=== PATIENT | male | born 1960 | race Caucasian/White ===

== ENCOUNTER → 2019-12-02 14:42 | Outpatient (CLI) | payer MEDICAID, SELFPAY ==
--- NOTE | 2019-12-02 14:46 | MR_ITS ---
PROCEDURE: MR SHOULDER LT WO CON CLINICAL INDICATION: PAIN IN LEFT SHOULDER LET SHOULDER PAIN X 3 WEEKS PT STATES HE IS UNABLE TO RAISE ARM. PT DENIES TRAUMA OR INJURY. COMPARISON: No exams were available for comparison TECHNIQUE: Routine multiplanar multi echo sequences are performed without gadolinium enhancement. FINDINGS: There are mild hypertrophic changes of the acromioclavicular joint with mild subacromial stenosis. Small subarticular cysts are present at the AC joint. The supraspinatus, infraspinatus, subscapularis, and teres minor tendons appear intact. No evidence of rotator cuff tear. The bicipital tendon is in place. No obvious labral tear. Small amount fluid is present in the subcoracoid region. IMPRESSION: 1. Acromioclavicular arthropathy with bony hypertrophy, sub chondral cysts, and mild subacromial stenosis with mild subcoracoid bursitis 2. No evidence rotator cuff tear or other significant anomaly Dictated by: Chin Cummins MD 12/05/2019 07:29 Chin Cummins MD in [place] 12/05/2019 07:29
== END ==
PROVIDERS: PCP Nurse Practitioner Family; Visit Provider Nurse Practitioner Family
DX: M25.512 Pain in left shoulder (principal)
CPT/HCPCS: 73221

== ENCOUNTER → 2022-02-05 08:03 | Outpatient (CLI) | payer MEDICAID, SELFPAY ==
--- NOTE | 2022-02-05 08:06 | US_ITS ---
FINAL REPORT CLINICAL HISTORY: RUQ PAIN FINDINGS: Sonographic images of the right upper quadrant were obtained. The pancreas is partially obscured.The liver has an unremarkable appearance. There are at least 2 tiny gallbladder polyps measuring 2 MM. Gallbladder is otherwise unremarkable. There is no evidence of biliary ductal dilatation.The common duct measures 0.28 mm. There is a 1.6 cm mid right renal cyst. Right kidney measures 10 cm in length and is otherwise unremarkable. IMPRESSION: Tiny gallbladder polyps. Right renal cyst. Reviewed, Interpreted and Dictated by Lashell Tanner MD Transcribed by Natalia Ellis Authenticated and [facility]
== END ==
PROVIDERS: PCP Nurse Practitioner Family; Visit Provider Nurse Practitioner Family
DX: R10.11 Right upper quadrant pain (principal)
CPT/HCPCS: 76705

== ENCOUNTER 2022-04-10 10:18 | Day surgery (SDC) | payer MEDICAID, SELFPAY ==
[2022-04-10 11:13] VITALS: BP 159/58; PULSE 85; RESP 18; TEMP 36.5; O2SAT 94; BMI 25.8
[2022-04-10 11:22] LABS: POC Glucose,Bedside 104 (70-110)
--- NOTE | 2022-04-10 11:56 | EXP.ANES.CKL ---
[facility] Disclaimer: The information contained in this section may have been updated after the patient was seen, as this information can be updated by other users. Medical History Diabetes mellitus, type 2 Hyperlipidemia Hypertension Osteoarthritis Surgical History History of colonoscopy History of rectal polypectomy Family History Other Family history of cancer Family history of diabetes mellitus type II Family history of myocardial infarction Social History Smoking Status: Never smoker second hand exposure: No alcohol intake: current substance use type: denies use current occupational status: retired Travel in the last 8 weeks: None household members: none housing: house lives independently: Yes marital status: single education level: high school service: No current occupation: self-employed current occupational exposures/hazards: No caffeine: Yes special steven needs: No agree to transfusion: No do you feel safe at home: Yes victim of physical abuse: No victim of emotional abuse: No victim of sexual abuse: No would you like helpful sources: No [facility] Anesthesia Checklist Patient Identification Patient Identification: Arm Band Structural Data Admitted From: Home Planned Operative Procedure/s: colonoscopy Consent for Planned Operative Procedure(s) Verified: Yes Verified Documents: Surgical Consent and History and Physical NPO Status Verified Time NPO: 00:00 Additional verifications Anesthesia Reactions: No Airway Assessment C-Spine Mobility Assessed: Yes TMJ Mobility Assessed: Yes Dentition: Good Dentition Neurological Assessment Level of Consciousness: Awake and Alert Anesthesia Plan Anesthesia Risk discussed: Yes Anesthesia Plan: Verified ASA Class: II Anesthesia Type: MAC
--- NOTE | 2022-04-10 12:32 | P.PCN_ITS ---
Procedure: Date: 04/10/22 Patient Date of :: 1960 Procedure Performed:: Colonoscopy Indications:: History of colon polyps Performing Provider:: Seymour Espinal MD Referring Provider:: Marcela Canas APRN Sedation:: Monitored anesthesia care Procedure:: After informed consent was obtained the patient was taken to the endoscopy suite. Sedation ensued after the patient was transferred to the left lateral d ecubitus position. Pulse, blood pressure, and oxygen saturation were monitored throughout the procedure. Digital rectal exam revealed no significant abnormality. The colonoscope was placed in position. The entire colon was evaluated. The colonoscope was carefully removed and the patient was transferred to recovery in stable condition. Please see findings and specimens below for detail. Findings:: Bowel prep moderate Significant spasticity/lack of relaxation Specimens:: None Recommendations:: Likely repeat colonoscopy approximately 3 years secondary to history of polyps, moderate bowel prep, and spasticity/lack of relaxation. Note: The patient has a history of right upper quadrant pain with radiation to the right flank. Symptoms are worse with greasy meals . Recent ultrasound revealed a 2 mm polyp. Plans were to proceed with cholecystectomy after colonoscopy completed. Complications:: No immediate Estimated blood obtained (mL): 0
[2022-04-10 12:39] VITALS: O2SAT 94
[2022-04-10 13:20] VITALS: BP 102/58; PULSE 68; RESP 14; TEMP 36.2; O2SAT 95
[2022-04-10 13:30] VITALS: BP 111/55; PULSE 67; RESP 16; O2SAT 94
[2022-04-10 13:40] VITALS: BP 98/60; PULSE 72; RESP 16; O2SAT 96
[2022-04-10 13:50] VITALS: BP 122/55; PULSE 71; RESP 16; TEMP 36.7; O2SAT 97
== END 2022-04-10 13:50 | disposition home or self-care (01) ==
PROVIDERS: PCP Nurse Practitioner Family; Visit Provider Surgery
PROC: 0DJD8ZZ Inspection of Lower Intestinal Tract, Via Natural or Artificial Opening Endoscopic (ICD-10-PCS; CPT 45378; principal; 2022-04-10 12:30)
DX: Z12.11 Encounter for screening for malignant neoplasm of colon (principal); Z86.010 Personal history of colon polyps; E11.9 Type 2 diabetes mellitus without complications; Z79.899 Other long term (current) drug therapy
CPT/HCPCS: 45378; 82962

== ENCOUNTER → 2022-04-20 09:08 | Outpatient (CLI) | payer MEDICAID, SELFPAY ==
--- NOTE | 2022-04-20 09:35 | ECG_ITS ---
APPROVED REPORT Exam: Resting ECG HR:75 bpm ECG Measurements Heart Rate 75 AXES NE 152 P 52 QRSd 96 QRS 51 QT 370 T -3 QTc 400 Conclusion SINUS RHYTHM NORMAL ECG UNCONFIRMED REPORT Electronically signed by : Dayday Mendoza MD 04/21/2022 12:09:19
[2022-04-20 10:33] LABS: Basophils # 0.1 K/mm3 (0-0.2); Basophils % 0.9 % (0.1-2.0); Eosinophils # 0.4 K/mm3 (0.0-0.4); Eosinophils % 5.4 % (0.1-12.0); Hematocrit 45.5 % (42.0-52.0); Hemoglobin 14.2 g/dL (14.1-18.0); Lymphocytes # 0.9 K/mm3 (0.7-4.5); Lymphocytes % 11.9 % (10-50); Mean Corpuscular HGB Conc 31.2 g/dL (31.8-35.4); Mean Corpuscular Hemoglobin 26.5 pg (27.0-31.2); Mean Corpuscular Volume 84.9 fl (80-94); Mean Platelet Volume 8.4 fl (7.4-10.4); Monocytes # 0.4 K/mm3 (0.1-1.0); Monocytes % 5.3 % (1.7-9.3); Neutrophils # 5.5 K/mm3 (1.8-7.8); Neutrophils % 76.4 % (37.0-80.0); Platelet Count 222 K/mm3 (142-424); Red Blood Count 5.35 M/mm3 (4.60-6.20); Red Cell Distribution Width 14.1 % (11.5-17.5); White Blood Count 7.2 K/mm3 (4.8-10.8)
[2022-04-20 11:20] LABS: Alanine Aminotransferase 20 U/L (12-78); Albumin Level 4.3 g/dl (3.5-5.0); Alkaline Phosphatase 101 U/L (38-126); Anion Gap 12.4 mEq/L (5-15); Aspartate Amino Transferase 31 U/L (17-59); Bilirubin,Total 0.7 mg/dl (0.2-1.3); Blood Urea Nitrogen 17 mg/dl (9-20); Calcium 8.8 mg/dl (8.4-10.2); Carbon Dioxide 26 mmol/L (22.0-30.0); Chloride 103 mmol/L (98-107); Estimated Glomerular Filt Rate 98 ml/min (>60); GFR (African American) 119 ML/MIN (>60); Globulin 2.2 g/dL (1.3-3.2); Glucose 152 mg/dl (74-100); Potassium 4.4 mmoL/L (3.5-5.1); Sodium 137 mmol/L (136-145); Total Protein,Serum 6.5 g/dl (6.3-8.2)
== END ==
PROVIDERS: PCP Nurse Practitioner Family; Visit Provider Surgery
DX: K82.4 Cholesterolosis of gallbladder; Z01.818 Encounter for other preprocedural examination
CPT/HCPCS: 36415; 80053; 85025; 93005

== ENCOUNTER 2022-05-10 07:45 | Day surgery (SDC) | payer MEDICAID, SELFPAY ==
[2022-05-08 17:23] VITALS: BMI 25.8
[2022-05-10] VITALS (11 sets, daily range): BP systolic 128–162; BP diastolic 66–93; PULSE 68–83; RESP 16–18; TEMP 36.1–43; O2SAT 94–98
--- NOTE | 2022-05-10 10:52 | P.PN_ITS ---
[facility] Disclaimer: The information contained in this section may have been updated after the patient was seen, as this information can be updated by other users. Medical History Diabetes mellitus, type 2 Hyperlipidemia Hypertension Osteoarthritis Surgical History History of colonoscopy History of rectal polypectomy surgical removal too large for procedure rm Family History Other Family history of cancer Family history of diabetes mellitus type II Family history of myocardial infarction Social History Smoking Status: Never smoker second hand exposure: No alcohol intake: current substance use type: denies use current occupational status: retired Travel in the last 8 weeks: None household members: none housing: house lives independently: Yes marital status: single education level: high school service: No current occupation: self-employed current occupational exposures/hazards: No caffeine: Yes special steven needs: No agree to transfusion: No do you feel safe at home: Yes victim of physical abuse: No victim of emotional abuse: No victim of sexual abuse: No would you like helpful sources: No [facility] Anesthesia Checklist Patient Identification Patient Identification: Arm Band and Verbal (Name & ) Structural Data Admitted From: Home Planned Operative Procedure/s: Laparascopic Cholecystectomy Consent for Planned Operative Procedure(s) Verified: Yes Verified Documents: Surgical Consent NPO Status Verified Time NPO: 00:00 Chart Verification Results Verified: CBC and BMP Additional verifications Anesthesia Reactions: No Hx Blood Transfusions: No Blood Transfusion Reaction: No Airway Assessment C-Spine Mobility Assessed: Yes TMJ Mobility Assessed: Yes Dentition: Good Dentition Neurological Assessment Level of Consciousness: Awake, Alert and Appropriate Anesthesia Plan Anesthesia Risk discussed: Yes ASA Class: II Anesthesia Type: General
--- NOTE | 2022-05-10 11:34 | P.OP_ITS ---
Date of procedure: 05/10/22 Pre-op Diagnosis:: Gallbladder polyp Right upper quadrant pain Post-op Diagnosis:: Same as preoperative diagnoses with the addition of the following: Chronic cholecystitis Procedure performed:: Laparoscopic cholecystectomy Surgeon:: Seymour Espinal MD Anesthesia: GETMelina Estimated blood loss (mL): 15 Operative findings:: Severe adhesions to the anterior abdominal wall secondary to prior surgery Infundibular thickening Operative note:: After informed consent was obtained, the patient was taken to the operating room and placed in the supine position. General anesthesia was induced and the abdomen was prepped and draped in a sterile fashion. After infiltration with local anesthetic a stab incision was made in the left upper quadrant. A Veress needle was placed in position. The abdomen was insufflated. A 5 mm optical trocar was placed in position along the left mid flank. Visualization confirmed dense adhesions throughout the anterior abdominal wall projecting along the midline superiorly and inferiorly. Under direct visualization a 5 mm trocar was placed in the right lateral flank and an additional 5 mm trocar was placed in the right upper mid abdomen. Direct inspection from the right lateral trocar site confirmed dense adhesions with minimal sparing superiorly. Under direct visualization, a 12 mm trocar was placed in the subxiphoid position. Adhesions in the right mid/lower abdomen were carefully taken down bluntly in order to create a space for the periumbilical trocar. The periumbilical 5 mm trocar was placed somewhat to the right of the umbilicus and superior to the umbilicus sec ondary to need to avoid additional adhesions. No sign of obvious injury to bowel and no sign of bleeding noted. The gallbladder was elevated up and over the liver margin. The tissue around the cystic duct was carefully dissected. 3 clips were placed proximally and the duct was transected with harmonic travon. Harmonic travon were then utilized to dissect the gallbladder away from the liver margin with careful attention to the control of the cystic artery. The gallbladder was placed in a retrieval bag and removed through the subxiphoid trocar site. The right upper quadrant was thoroughly irrigated. No active bleeding or bile leak was noted. Fascia at the subxiphoid trocar site was reapproximated utilizing 0 Ethibond. The remaining trocars were removed. All wounds were irrigated and skin was closed with 4-0 Monocryl in a subcuticular fashion. Steri-Strips were applied. The patient's anesthetic agents were reversed and extubation was completed prior to transfer to recovery in stable condition. Condition: stable Disposition: PACU Specimens:: Gallbladder and contents Complications:: No immediate
--- NOTE | 2022-05-10 11:43 | EXP.ANES.I ---
[facility] Anesthesia Record Part I Anesthesia Record I Intake, IV Amount: 800 Estimated blood loss (mL): 5 Urine output (mL): 0 Blood Pressure: 131/75 SaO2: 95 Pulse Rate: 74 Respiratory Rate: 16 Temperature: 97.3 F Patient is:: Drowsy and Nasal O2 Stable to PACU at:: 11:42
[2022-05-10 11:50] LABS: POC Glucose,Bedside 123 (70-110)
--- NOTE | 2022-05-10 14:37 | P.PNANES_ITS ---
[facility] Anesthesia Record Part II Anesthesia Record Part II Discharge Time: 12:12 Destination: Surgical Day Care (OP Surgery) PACU nurse assessment reviewed?: Yes Patient Condition:: Good Anesthesia Complications:: None Swallowing reflex intact?: Yes Cyanosis?: No Blood Pressure: 145/93 Pulse Rate: 77 Temperature: 97 F Mental Status: Alert & Oriented Pain level:: 3 Nausea and/or vomitting:: None Intake, IV Amount: 0
[2022-05-11 09:04] LABS: POC Glucose,Bedside 77 (70-110)
== END 2022-05-10 12:50 | disposition home or self-care (01) ==
PROVIDERS: PCP Nurse Practitioner Family; Visit Provider Surgery
PROC: 0FT44ZZ Resection of Gallbladder, Percutaneous Endoscopic Approach (ICD-10-PCS; CPT 47562; principal; 2022-05-10 10:00)
DX: K81.1 Chronic cholecystitis (principal); E11.9 Type 2 diabetes mellitus without complications; Z79.899 Other long term (current) drug therapy
CPT/HCPCS: 47562; 82962; 96374; J2405

== ENCOUNTER → 2022-10-02 15:00 | Outpatient (CLI) | payer MEDICAID, SELFPAY ==
--- NOTE | 2022-10-02 15:04 | XR_ITS ---
FINAL REPORT CLINICAL HISTORY: Right foot pain COMPARISON: None FINDINGS: Three views of the right foot show no evidence of acute displaced fracture or dislocation of the visualized bony architecture. The joint spaces appear normal. IMPRESSION: Unremarkable exam. Reviewed, Interpreted and Dictated by Lashell Tanner MD Transcribed by Kellie Mays Authenticated and [facility]
--- NOTE | 2022-10-02 15:04 | XR_ITS ---
FINAL REPORT CLINICAL HISTORY: Left foot Pain, stepped on by cow COMPARISON: None FINDINGS: Three views of the left foot show no evidence of acute displaced fracture or dislocation of the visualized bony architecture. The joint spaces appear normal. IMPRESSION: Unremarkable exam. Reviewed, Interpreted and Dictated by Lashell Tnaner MD Transcribed by Kellie Mays Authenticated and [facility]
== END ==
PROVIDERS: PCP Nurse Practitioner Family; Visit Provider Nurse Practitioner Family
DX: M79.672 Pain in left foot (principal); M79.671 Pain in right foot
CPT/HCPCS: 73630

== ENCOUNTER 2023-07-04 19:57 | Emergency (ER) | payer SELFPAY ==
[2023-07-04 19:59] VITALS: BP 178/78; PULSE 69; RESP 20; TEMP 37.1; O2SAT 97; BMI 25.8
--- NOTE | 2023-07-04 20:15 | HMH.EDGENADL ---
Discharge Plan Disposition Patient Disposition: Home, Self-Care Prescriptions Prescriptions: No Action Jardiance 25 mg tablet 25 mg PO DAILY Patient Comments: TAKE 1 TABLET 1 TIME EACH DAY IN THE MORNING latanoprost 0.005 % drops Eye-Both Colleenaglar DonnaPen U-100 Insulin 100 unit/mL (3 mL) insulin pen 46 unit SQ DAILY atorvastatin 80 mg tablet 80 mg PO DAILY aspirin 81 mg tablet,delayed release (DR/EC) 81 mg PO DAILY tramadol 50 mg tablet 50 mg PO DAILY glyburide 5 mg tablet 5 mg PO DAILY metformin 1,000 mg tablet 1,000 mg PO DAILY meloxicam 15 mg tablet 15 mg PO DAILY lisinopril 20 mg tablet 20 mg PO DAILY amlodipine 10 mg tablet PO Patient Comments: TAKE 1 TABLET 1 TIME EACH DAY nitroglycerin 0.4 mg tablet, sublingual buccal Patient Comments: DISSOLVE 1 TABLET UNDER THE TONGUE EVERY 5 MINUTES NEEDED FOR CHEST PAIN. IF 3 TABLETS ARE NEEDED, GO TO EMERGENCY ROOM. albuterol sulfate [Ventolin HFA] 90 mcg/actuation HFA aerosol inhaler inhalation Patient Comments: INHALE 2 PUFFS EVERY 4 HOURS NEEDED FOR COUGH OR WHEEZING metoprolol tartrate 25 mg tablet PO Patient Comments: TAKE 1 TABLET 2 TIMES EACH DAY Referrals Follow up/Referrals: Marcela Canas [Primary Care Provider] - See instructions Activity Restrictions/Add. Instructions Additional Instructions/Restrictions: Stitches to stay in for 7 to 10 days. Return if you have any signs of infection. Clinical Impressions Clinical Impression: Laceration of right index finger Instructions Patient Instructions: DI for Laceration Repair Discharge ED Provider: Jeremias Clarke General Adult HPI General Chief complaint: Wound/Laceration Stated complaint: AO 07/04/23 11:30 Laceration Ring finer right hand Time Seen by Provider: 07/04/23 20:01 Mode of Arrival: Ambulatory Source of Information: Patient Limitations: No Limitations Description of Symptoms (Recalled from ER Triage Doc. 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 Patient states last tentus shot was 3-4 years ago. History of Present Illness HPI narrative: 63-year-old male up-to-date on vaccinations, no relevant medical history presenting with injury to his right ring finger. Happened around 11:30 AM today, 07/03. 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 Tip of finger is nontender, able to move it and feel it, but because of laceration, came in for further evaluation. No other trauma sustained. Please note that above description of symptoms, in this electronic medical record under categorization of recalled from ER triage doctor by RN are reflective of an initial nursing assessment, however, is not reflective of my full history and physical exam that was personally taken and clarified. Consequentially, this preceding description of symptoms, which may include the patient's categorized chief complaint in the EMR, do not reflect my personal clinical impression, and the ultimate description of history of present illness and patient stated complaints should be deferred to this section of the note. Unless stated otherwise or congruent with this section of the note, additional signs, symptoms, or incongruence should be interpreted as inaccurate with my clinical impression. Related Data Home Medications Medication Instructions Recorded Confirmed aspirin 81 mg tablet,delayed 81 mg PO DAILY preventitive 02/04/19 06/26/23 release atorvastatin 80 mg tablet 80 mg PO DAILY Cholesterol 02/04/19 06/26/23 glyburide 5 mg tablet 5 mg PO DAILY Diabetes 02/04/19 06/26/23 insulin glargine 100 unit/mL (3 46 unit SQ DAILY Diabetes 02/04/19 06/26/23 mL) subcutaneous pen (Basaglar KwikPen U-100 Insulin) lisinopril 20 mg tablet 20 mg PO DAILY bp 02/04/19 06/26/23 meloxicam 15 mg tablet 15 mg PO DAILY swelling 02/04/19 06/26/23 metformin 1,000 mg tablet 1,000 mg PO DAILY Diabetes 02/04/19 06/26/23 tramadol 50 mg tablet 50 mg PO DAILY Pain 02/04/19 06/26/23 empagliflozin 25 mg tablet 25 mg PO DAILY Diabetes 02/21/22 06/26/23 (Jardiance) latanoprost 0.005 % eye drops drp Eye-Both 10/02/22 06/26/23 albuterol sulfate 90 mcg/actuation inhalation 06/26/23 06/26/23 aerosol inhaler (Ventolin HFA) amlodipine 10 mg tablet mg PO 06/26/23 06/26/23 metoprolol tartrate 25 mg tablet mg PO 06/26/23 06/26/23 nitroglycerin 0.4 mg sublingual mg buccal 06/26/23 06/26/23 tablet Allergies Allergy/AdvReac Type Severity Reaction Status Date / Time No Known Allergies Allergy Verified 06/26/23 13:58 [facility] Disclaimer: The information contained in this section may have been updated after the patient was seen, as this information can be updated by other users. Medical History Osteoarthritis Hyperlipidemia Hypertension Diabetes mellitus, type 2 Surgical History History of laparoscopic cholecystectomy History of rectal polypectomy surgical removal too large for procedure rm History of colonoscopy Family History Other Family history of cancer Family history of diabetes mellitus type II Family history of myocardial infarction Social History Smoking Status: Never smoker second hand exposure: No alcohol intake: current alcohol intake frequency: holidays/special occasions only substance use type: denies use current occupational status: retired Travel in the last 8 weeks: None household members: none housing: house lives independently: Yes marital status: single education level: high school service: No current occupation: self-employed current occupational exposures/hazards: No caffeine: Yes special steven needs: No agree to transfusion: No do you feel safe at home: Yes victim of physical abuse: No victim of emotional abuse: No victim of sexual abuse: No would you like helpful sources: No ROS Obtained: Yes All systems reviewed & no additional complaints except as documented Physical Exam General General appearance: alert and in no apparent distress Head Head exam: atraumatic and normocephalic Eye Eye exam: Present normal appearance, PERRL and EOMI ENT ENT exam: Present mucous membranes moist Neck Neck exam: Present normal inspection, full ROM and trachea midline Respiratory Respiratory exam: Absent respiratory distress, wheezes, stridor, accessory muscle use or prolonged expiratory phase Cardiovascular Cardiovascular exam: Present normal rhythm Abdominal Exam Abdominal exam: Present soft; Absent distention, tenderness, guarding, rebound or rigidity Extremities Exam Extremities exam: Present other (Swelling and tenderness with associated 1 cm fishmouth laceration distal aspect of right ring finger. Neurovascular intact with good cap refill distally); Absent edema Neurological Exam Neurological exam: Present alert, oriented X3, CN II-XII intact and normal gait; Absent motor sensory deficit Skin Skin exam: Present warm and dry; Absent diaphoresis or erythema Medical Decision Making Medical Records Medical records reviewed: Yes I reviewed the patient's medical records. Balbir Inquiry Pt receiving controlled substance: No Balbir was queried for this patient: No Vital Signs: 07/04/23 19:59 Temperature 98.7 F Temperature Source Oral Pulse Rate [Right Radial] 69 Respiratory Rate 20 Blood Pressure [Right Arm] 178/78 H Blood Pressure Mean [Right Arm] 111 Blood Pressure Source [Right Arm] Automatic Cuff Blood Pressure Position [Right Arm] Sitting 02 Sat by Pulse Oximetry 97 Oxygen Delivery Method Room Air Orders (Tests/Meds): ED MEDICATIONS Discontinued Medications Generic Name Dose Route Start Last Admin Trade Name Joshq PRN Reason Stop Dose Admin Lidocaine HCl 20 ml 07/04/23 20:14 07/04/23 20:42 Lidocaine 1% 20ml Mdv SQ 07/04/23 20:15 20 ml ONCE ONE Administration Lidocaine/Epinephrine 20 ml 07/04/23 20:14 07/04/23 20:43 Lidocaine 1% W/Epi 1:100,000 20ml Vial SQ 07/04/23 20:15 20 ml ONCE ONE Administration Medical Decision Narrative: 63-year-old male up-to-date on vaccinations, no relevant medical history presenting with injury to his right ring finger. Happened around 11:30 AM today, 07/03. 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 Tip of finger is nontender, able to move it and feel it, but because of laceration, came in for further evaluation. No other trauma sustained. History obtained with patient. On arrival, patient hemodynamically stable. It is hemostatic. Not incredibly contaminated. Neurovascularly intact, full range of motion. He does have 1 cm fishmouth laceration along the lateral aspect of his distal right ring finger. Does not involve nailbed. Repaired with 6 stitches which were 5 point 0 nylon. Because patient at baseline without signs or symptoms of clinical decompensation, deemed appropriate for discharge. Results were relayed to patient who voiced understanding and were agreeable to outpatient management and follow up. I discussed my clinical impression with patient and answered all questions. At this time, the evidence for any other entities in the differential is insufficient to warrant any further testing or ED observation. This was explained as well. Advisory was given that persistent or worsening symptoms require further evaluation. I confirmed the understanding of this discussion. Procedures Laceration Laceration 1: Site: finger Side (If applicable): right Size (cm): 1 Description: linear Depth: simple, single layer Local Anesthetic: lidocaine 1% Amount of anesthesia used (mL): 5 Pre-repair: wound explored and irrigated extensively Skin layer closed with: nylon Size (cm): 5-0 Number of sutures: 6 Critical Care Critical Care Time Critical Care Time: No
[2023-07-04] MEDS: LIDOCAINE 1% 20ML MDV 20 ML SQ (20:42)
[2023-07-04] MEDS: LIDOCAINE 1% W/EPI 1:100,000 20ML VIAL 20 ML SQ (20:43)
[2023-07-04 21:53] VITALS: BP 140/80; PULSE 70; RESP 20; TEMP 36.7; O2SAT 98
== END 2023-07-04 21:54 | disposition home or self-care (01) ==
PROVIDERS: Emergency Provider Emergency Medicine; PCP Nurse Practitioner Family
DX: S61.214A Laceration without foreign body of right ring finger without damage to nail, initial encounter (principal); W23.2XXA Caught, crushed, jammed or pinched between a moving and stationary object, initial encounter
CPT/HCPCS: 12001; 99283

== ENCOUNTER 2023-07-15 10:32 | Emergency (ER) | payer SELFPAY ==
[2023-07-15 11:15] VITALS: BP 151/74; PULSE 71; RESP 18; TEMP 36.6; O2SAT 98; BMI 25.8
[2023-07-15 11:23] VITALS: BP 151/74; PULSE 71; RESP 18; TEMP 36.7; O2SAT 98
== END 2023-07-15 11:25 | disposition home or self-care (01) ==
PROVIDERS: Emergency Provider Nurse Practitioner; PCP Nurse Practitioner Family
DX: Z48.02 Encounter for removal of sutures (principal)

== ENCOUNTER 2023-07-20 10:21 | Emergency (ER) | payer MEDICAID, SELFPAY ==
[2023-07-20 10:22] VITALS: BP 153/76; PULSE 71; RESP 16; TEMP 36.9; O2SAT 95; BMI 25.8
--- NOTE | 2023-07-20 10:36 | CT_ITS ---
PROCEDURE INFORMATION: Exam: CT Abdomen And Pelvis Without Contrast Exam date and time: 07/20/2023 10:44 AM Age: 63 years old Clinical indication: Abdominal pain; Prior surgery; Surgery date: 6+ months; Surgery type: Partial colectomy, cholecystectomy; Additional info: Right flank/abd pain TECHNIQUE: Imaging protocol: Computed tomography of the abdomen and pelvis without contrast. Radiation optimization: All CT scans at this facility use at least one of these dose optimization techniques: automated exposure control; mA and/or kV adjustment per patient size (includes targeted exams where dose is matched to clinical indication); or iterative reconstruction. COMPARISON: US GALLBLADDER 02/05/2022 8:57 AM FINDINGS: Limitations: The absence of intravenous contrast limits the assessment of vascular structures, lesions and lymphadenopathy. Lungs: Right lower lobe granuloma Liver: No focal hepatic lesions within the limits of noncontrast examination. Gallbladder and bile ducts: There has been a cholecystectomy. Pancreas: No peripancreatic fluid stranding. No main pancreatic ductal dilation. Spleen: No splenomegaly. Adrenal glands: The adrenal glands are normal. Kidneys and ureters: No nephrolithiasis or hydroureteronephrosis on either side. Stomach and bowel: Status post right hemicolectomy.No bowel wall thickening or distention. Appendix: Status post appendectomy Intraperitoneal space: There is no evidence of free intraperitoneal or pelvic fluid. Vasculature: The aorta demonstrates moderate atherosclerotic calcification. Lymph nodes: No lymphadenopathy. Urinary bladder: Urinary bladder is unremarkable. Reproductive: Unremarkable as visualized. Bones/joints: No acute osseous abnormality. Multilevel degenerative changes of the included spine. Soft tissues: Unremarkable. Other findings: Window IMPRESSION: No acute abnormality in the abdomen or pelvis
[2023-07-20 10:42] LABS: Basophils # 0.1 K/mm3 (0-0.2); Basophils % 0.7 % (0.1-2.0); Eosinophils # 0.3 K/mm3 (0.0-0.4); Eosinophils % 3.2 % (0.1-12.0); Hematocrit 49.5 % (42.0-52.0); Hemoglobin 15.8 g/dL (14.1-18.0); Lymphocytes # 0.9 K/mm3 (0.7-4.5); Lymphocytes % 9.6 % (10-50); Mean Corpuscular Hemoglobin 29.4 pg (27.0-31.2); Mean Corpuscular Volume 91.8 fl (80-94); Mean Platelet Volume 7.6 fl (7.4-10.4); Monocytes # 0.5 K/mm3 (0.1-1.0); Monocytes % 4.9 % (1.7-9.3); Neutrophils # 7.9 K/mm3 (1.8-7.8); Neutrophils % 81.7 % (37.0-80.0); Platelet Count 229 K/mm3 (142-424); Red Blood Count 5.39 M/mm3 (4.60-6.20); Red Cell Distribution Width 14.1 % (11.5-17.5); White Blood Count 9.7 K/mm3 (4.8-10.8)
[2023-07-20 10:44] LABS: Chloride 98 mmol/L (98-107)
[2023-07-20 10:45] LABS: Potassium 4.4 mmoL/L (3.5-5.1); Sodium 137 mmol/L (136-145)
[2023-07-20 10:47] LABS: Alanine Aminotransferase 32 U/L (12-78); Alkaline Phosphatase 98 U/L (38-126); Aspartate Amino Transferase 40 U/L (17-59); Bilirubin,Total 1.1 mg/dl (0.2-1.3); Blood Urea Nitrogen 14 mg/dl (9-20); Creatinine Clearance Estimated 78 mL/min (50-200); Estimated Glomerular Filt Rate 114 ml/min (>60); GFR (African American) 138 ML/MIN (>60)
--- NOTE | 2023-07-20 10:47 | ED_ITS ---
Discharge Plan Disposition Patient Disposition: Home, Self-Care Prescriptions Prescriptions: No Action Jardiance 25 mg tablet 25 mg PO DAILY Patient Comments: TAKE 1 TABLET 1 TIME EACH DAY IN THE MORNING latanoprost 0.005 % drops Eye-Both Maria Ines Hardin U-100 Insulin 100 unit/mL (3 mL) insulin pen 46 unit SQ DAILY atorvastatin 80 mg tablet 80 mg PO DAILY aspirin 81 mg tablet,delayed release (DR/EC) 81 mg PO DAILY tramadol 50 mg tablet 50 mg PO DAILY glyburide 5 mg tablet 5 mg PO DAILY metformin 1,000 mg tablet 1,000 mg PO DAILY meloxicam 15 mg tablet 15 mg PO DAILY lisinopril 20 mg tablet 20 mg PO DAILY amlodipine 10 mg tablet PO Patient Comments: TAKE 1 TABLET 1 TIME EACH DAY nitroglycerin 0.4 mg tablet, sublingual buccal Patient Comments: DISSOLVE 1 TABLET UNDER THE TONGUE EVERY 5 MINUTES NEEDED FOR CHEST PAIN. IF 3 TABLETS ARE NEEDED, GO TO EMERGENCY ROOM. albuterol sulfate [Ventolin HFA] 90 mcg/actuation HFA aerosol inhaler inhalation Patient Comments: INHALE 2 PUFFS EVERY 4 HOURS NEEDED FOR COUGH OR WHEEZING metoprolol tartrate 25 mg tablet PO Patient Comments: TAKE 1 TABLET 2 TIMES EACH DAY Referrals Follow up/Referrals: Marcela Canas [Primary Care Provider] - See instructions Activity Restrictions/Add. Instructions Additional Instructions/Restrictions: No obvious emergent medical condition identified. Under CT scan there is a very large amount of stool in the ascending colon on the right side of your abdomen which may be the cause of your intermittent abdominal discomfort. I highly recommend he take [id number] MiraLAX starting with half a cap twice a day doubling the dose every 3 days until you have a very soft bowel movement daily then stay on this dose for 2 weeks. Follow-up with primary care doctor and return to emergency room with any significant worsening of her symptoms. Clinical Impressions Clinical Impression: Right lateral abdominal pain Instructions Patient Instructions: DI for Acute Abdominal Pain Discharge ED Provider: Fredrick Quinones General Adult HPI General Chief complaint: Abdominal Pain Stated complaint: abd pain Time Seen by Provider: 07/20/23 10:31 Mode of Arrival: Ambulatory Source of Information: Patient Limitations: No Limitations Description of Symptoms (Recalled from ER Triage Doc. by RN): pt presents to ED with c/o fire in left side of abdomen. pt reports pain began last night, has been intermittent. some radiation into left side of back. History of Present Illness HPI narrative: Patient is a 63-year-old male present today with right-sided abdominal pain. States that it initially started yesterday evening was located in the right flank and radiated to the right lower quadrant. Subsided but has been intermittent and woke him up again around 4 AM with significant pain. Denies any significant tenderness. Had a cholecystectomy last year has not had his appendix removed has had no other abdominal surgeries denies any other medical problems. Denies any urinary symptoms such as burning frequency urgency or hematuria. Denies any changes in bowel movement including diarrhea constipation etc. Describes the discomfort as burning. Denies any rash. Related Data Home Medications Medication Instructions Recorded Confirmed aspirin 81 mg tablet,delayed 81 mg PO DAILY preventitive 02/04/19 06/26/23 release atorvastatin 80 mg tablet 80 mg PO DAILY Cholesterol 02/04/19 06/26/23 glyburide 5 mg tablet 5 mg PO DAILY Diabetes 02/04/19 06/26/23 insulin glargine 100 unit/mL (3 46 unit SQ DAILY Diabetes 02/04/19 06/26/23 mL) subcutaneous pen (Basaglar KwikPen U-100 Insulin) lisinopril 20 mg tablet 20 mg PO DAILY bp 02/04/19 06/26/23 meloxicam 15 mg tablet 15 mg PO DAILY swelling 02/04/19 06/26/23 metformin 1,000 mg tablet 1,000 mg PO DAILY Diabetes 02/04/19 06/26/23 tramadol 50 mg tablet 50 mg PO DAILY Pain 02/04/19 06/26/23 empagliflozin 25 mg tablet 25 mg PO DAILY Diabetes 02/21/22 06/26/23 (Jardiance) latanoprost 0.005 % eye drops drp Eye-Both 10/02/22 06/26/23 albuterol sulfate 90 mcg/actuation inhalation 06/26/23 06/26/23 aerosol inhaler (Ventolin HFA) amlodipine 10 mg tablet mg PO 06/26/23 06/26/23 metoprolol tartrate 25 mg tablet mg PO 06/26/23 06/26/23 nitroglycerin 0.4 mg sublingual mg buccal 06/26/23 06/26/23 tablet Allergies Allergy/AdvReac Type Severity Reaction Status Date / Time No Known Allergies Allergy Verified 07/20/23 10:30 [facility] Disclaimer: The information contained in this section may have been updated after the patient was seen, as this information can be updated by other users. Medical History Osteoarthritis Hyperlipidemia Hypertension Diabetes mellitus, type 2 Surgical History History of laparoscopic cholecystectomy History of rectal polypectomy surgical removal too large for procedure rm History of colonoscopy Family History Other Family history of cancer Family history of diabetes mellitus type II Family history of myocardial infarction Social History Smoking Status: Never smoker second hand exposure: No alcohol intake: current alcohol intake frequency: holidays/special occasions only substance use type: denies use current occupational status: retired Travel in the last 8 weeks: None household members: none housing: house lives independently: Yes marital status: single education level: high school service: No current occupation: self-employed current occupational exposures/hazards: No caffeine: Yes special steven needs: No agree to transfusion: No do you feel safe at home: Yes victim of physical abuse: No victim of emotional abuse: No victim of sexual abuse: No would you like helpful sources: No ROS Obtained: Yes All systems reviewed & no additional complaints except as documented Physical Exam General General appearance: alert Respiratory Respiratory exam: Present normal lung sounds bilaterally Cardiovascular Cardiovascular exam: Present regular rate Abdominal Exam Abdominal exam: Present soft; Absent distention or tenderness Neurological Exam Neurological exam: Present alert and oriented X3 Medical Decision Making Balbir Inquiry Pt receiving controlled substance: No Vital Signs: 07/20/23 10:22 Temperature 98.5 F Temperature Source Oral Pulse Rate [Left Radial] 71 Respiratory Rate 16 Blood Pressure [Right Arm] 153/76 H Blood Pressure Mean [Right Arm] 101 02 Sat by Pulse Oximetry 95 Oxygen Delivery Method Room Air Lab Data Lab results reviewed: Yes I reviewed the patient's lab results. Lab Results 07/20/23 10:30: WBC 9.7, RBC 5.39, Hgb 15.8, Hct 49.5, MCV 91.8, MCH 29.4, MCHC 32.0, RDW 14.1, Plt Count 229, MPV 7.6, Neut % (Auto) 81.7 H, Lymph % (Auto) 9.6 L, [place] % (Auto) 4.9, Eos % (Auto) 3.2, Baso % (Auto) 0.7, Neut # (Auto) 7.9 H, Lymph # (Auto) 0.9, [place] # (Auto) 0.5, Eos # (Auto) 0.3, Baso # (Auto) 0.1, Sodium 137, Potassium 4.4, Chloride 98, Carbon Dioxide 31 H, Anion Gap 12.4, BUN 14, Creatinine 0.70, Estimated Creat Clear 78, Estimated GFR 114, Est GFR ( Amer) 138, Glucose 130 H, Calcium 9.5, Total Bilirubin 1.1, AST 40, ALT 32, Alkaline Phosphatase 98, Total Protein 7.2, Albumin 4.4, Globulin 2.8, Albumin/Globulin Ratio 1.6 07/20/23 12:11: Urine Color Yellow, Urine Appearance Clear, Urine pH 6.0, Ur Specific [place] 1.020, Urine Protein Negative, Urine Glucose (UA) 3+, Urine Ketones Negative, Urine Blood Negative, Urine Nitrate Negative, Urine Bilirubin Negative, Urine Urobilinogen 0.2, Ur Leukocyte Esterase Negative, Urine RBC Occasional, Urine WBC Occasional, Urine Bacteria Trace 07/20/23 10:30 07/20/23 10:30 Orders (Tests/Meds): ED MEDICATIONS Discontinued Medications Generic Name Dose Route Start Last Admin Trade Name Freq PRN Reason Stop Dose Admin Lactated Ringer's 1,000 mls @ 999 mls/hr 07/20/23 10:45 07/20/23 10:52 Lactated Ringer's 1000 Ml Bag IV 07/20/23 11:45 999 mls/hr .Q1H1M HANNAH Administration Ketorolac Tromethamine 15 mg 07/20/23 10:34 07/20/23 10:51 Ketorolac 30mg/Ml Vial IV 07/20/23 10:35 15 mg ONCE ONE Administration Ondansetron HCl 4 mg 07/20/23 10:34 07/20/23 10:52 Ondansetron 4mg/2ml Vial IV 07/20/23 10:35 4 mg ONCE ONE Administration ORDERS Category Date Time Status CT abdomen pelvis wo con Stat Cat Scan 05/11/24 10:36 Completed CBC w/Auto Diff [Complete Blood Count Auto Diff] Stat Lab 07/20/23 10:30 Completed CMP [Comprehensive Metabolic Panel] Stat Lab 07/20/23 10:30 Completed UA [Urinalysis and Microscopic] Stat Lab 07/20/23 12:11 Completed Medical Decision Narrative: Nontoxic-appearing 63-year-old male presents today with intermittent but severe right-sided abdominal pain that he describes as burning. Leading on the differential would be a kidney stone given the intermittent component of this. Could have a early zoster pain preceding a rash given the burning sensation. He has a benign abdominal exam inflammatory condition such as appendicitis are possible but unlikely. Will obtain a noncontrasted CT scan for further evaluation in addition to therapeutic medications. Reassessment 12:45 PM patient feeling much better serial abdominal exams are benign CT scan was performed which I first interpreted which shows no emergent condition however there is a large amount of stool in the ascending colon which may be the cause of patient's symptoms. I have advised that he take MiraLAX over the next several weeks to see if this improves his symptoms. Markable patient discharged in improved and stable condition with return precautions emphasized. Critical Care Critical Care Time Critical Care Time: No
[2023-07-20 10:48] LABS: Albumin Level 4.4 g/dl (3.5-5.0); Albumin/Globulin Ratio 1.6 (1.1-1.8); Anion Gap 12.4 mEq/L (5-15); Calcium 9.5 mg/dl (8.4-10.2); Carbon Dioxide 31 mmol/L (22.0-30.0); Globulin 2.8 g/dL (1.3-3.2); Glucose 130 mg/dl (74-100); Total Protein,Serum 7.2 g/dl (6.3-8.2)
[2023-07-20] MEDS: KETOROLAC 30MG/ML VIAL 15 MG IV (10:51)
[2023-07-20] MEDS: LACTATED RINGERS 1000ML 1,000 ML 999 ML IV (10:52)
[2023-07-20] MEDS: ONDANSETRON 4MG/2ML VIAL 4 MG IV (10:52)
[2023-07-20 12:14] LABS: Microscopic, Urine URINE MICROSCOPIC (MICROSCOPIC)
[2023-07-20 12:18] LABS: Appearance,Urine CLEAR (Clear); Bilirubin,Urine Negative (Negative); Blood, Urine Negative (Negative); Color,Urine YELLOW (Yellow); Glucose,Urine (UA) 3+ (Negative); Ketones,Urine Negative (Negative); Leukocyte Esterase,Urine Negative (Negative); Nitrate,Urine Negative (Negative); Protein,Urine Negative (Negative); Urobilinogen,Urine 0.2 EU/dl (0.2)
[2023-07-20 12:32] LABS: Bacteria,Urine Trace /lpf; RBC,Urine Occasional #/hpf (0-3); WBC,Urine Occasional #/hpf (0-3)
[2023-07-20 12:54] VITALS: BP 149/77; PULSE 64; RESP 19; TEMP 36.7; O2SAT 96
== END 2023-07-20 13:02 | disposition home or self-care (01) ==
PROVIDERS: Emergency Provider Student in an Organized Health Care Education/Training Program; PCP Nurse Practitioner Family
DX: R10.31 Right lower quadrant pain (principal); E11.9 Type 2 diabetes mellitus without complications; E78.5 Hyperlipidemia, unspecified; I10 Essential (primary) hypertension; Z79.4 Long term (current) use of insulin; Z79.84 Long term (current) use of oral hypoglycemic drugs
CPT/HCPCS: 74176; 80053; 81001; 85025; 96361; 96374; 96375; 99284; J2405

== ENCOUNTER 2024-06-02 06:11 | Day surgery (SDC) | payer MEDICAID, SELFPAY ==
[2024-05-29 11:42] VITALS: BMI 26.4
[2024-06-02 06:31] VITALS: BP 127/57; PULSE 81; RESP 18; TEMP 36.3; O2SAT 96
[2024-06-02] MEDS: LACTATED RINGERS 1000ML 1,000 ML 50 ML IV (06:39)
--- NOTE | 2024-06-02 07:05 | P.PCN_ITS ---
Procedure: Date: 06/02/24 Patient Date of :: 1960 Procedure Performed:: Colonoscopy Indications:: History of colon polyps Last colonoscopy in March 2022 was somewhat complicated by moderate bowel prep aration and fairly severe spasticity. Prior colonoscopy in March 2019 was also complicated by moderate bowel preparation and moderate spasticity/tortuosity. A tubular adenoma at 15 cm was excised. Additional polyps have been removed on prior colonoscopies. Performing Provider:: Seymour Espinal MD Referring Provider:: . Sedation:: Monitored anesthesia care Procedure:: After informed consent was obtained the patient was taken to the endoscopy suite. Sedation ensued after the patient was transferred to the left lateral decubitus position. Pulse, blood pressure, and oxygen saturation were monitored throughout the procedure. Digital rectal exam revealed no significant abnormality. The colonoscope was placed in position. The entire colon was evaluated. The colonoscope was carefully removed and the patient was transferred to recovery in stable condition. Please see findings and specimens below for detail. Findings:: Bowel preparation moderate Moderate spasticity Moderate tortuosity Specimens:: None Recommendations:: Repeat colonoscopy in 3-5 years Complications:: No immediate Estimated blood obtained (mL): 0 Colonoscopy Component Colonoscopy Component Was a colonoscopy performed during today's procedure?: Yes Recommended follow up colonoscopy of at least 10 years?: No If no, follow up colonoscopy recommended in ___ years?: (See above) Reason for not recommending >/= 10 yr follow-up interval?: (See above)
--- NOTE | 2024-06-02 07:06 | EXP.GEN.HP ---
HPI HPI HPI: This is a 64-year-old gentleman who presents for colonoscopy. He has a history of colon polyps. [facility] Disclaimer: The information contained in this section may have been updated after the patient was seen, as this information can be updated by other users. Medical History Osteoarthritis Hyperlipidemia Hypertension Diabetes mellitus, type 2 Surgical History History of laparoscopic cholecystectomy History of rectal polypectomy surgical removal too large for procedure rm History of colonoscopy Family History Other Family history of cancer Family history of diabetes mellitus type II Family history of myocardial infarction Social History Smoking Status: Never smoker second hand exposure: No alcohol intake: current alcohol intake frequency: holidays/special occasions only substance use type: denies use current occupational status: retired Travel in the last 8 weeks: None household members: none housing: house lives independently: Yes marital status: single education level: high school service: No current occupation: self-employed current occupational exposures/hazards: No caffeine: Yes special steven needs: No agree to transfusion: No do you feel safe at home: Yes victim of physical abuse: No victim of emotional abuse: No victim of sexual abuse: No would you like helpful sources: No Have you lived/traveled outside [place] in past 30 days?: No Contact w/someone who lives/traveled outside US past 30 days?: No Exposure to someone with infectious disease in past 14 days?: No Do you have a fever (greater than 100.4 F or 38 C)?: No Have you tested positive for COVID-19: No Exposed to someone with COVID-19 in past 14 days?: No Do you have a sore throat?: No Do you have a cough?: No Do you have any weakness?: No Are you experiencing any nausea/vomitting?: No Do you have any diarrhea?: No Are you experiencing any unusual bleeding?: No Do you have any muscle aches/pain?: No Do you have any abdominal pain?: No Are you experiencing loss of taste or smell?: No Other Medical History Have you received the Flu Vaccine for this season: Yes Have you received the Pneumonia Vaccine: No Review of Systems Review of Systems Review of systems:: pertinent systems reviewed and negative unless documented below Meds Home Medications and Allergies Home Medications ?Medication ?Instructions ?Recorded ?Confirmed ?Type aspirin 81 mg tablet,delayed 81 mg PO DAILY preventitive 02/04/19 06/02/24 History release atorvastatin 80 mg tablet 80 mg PO DAILY Cholesterol 02/04/19 06/02/24 History glyburide 5 mg tablet 5 mg PO BID Diabetes 02/04/19 06/02/24 History lisinopril 20 mg tablet 20 mg PO DAILY bp 02/04/19 06/02/24 History meloxicam 15 mg tablet 15 mg PO DAILY swelling 02/04/19 06/02/24 History metformin 1,000 mg tablet 1,000 mg PO BID Diabetes 02/04/19 06/02/24 History tramadol 50 mg tablet 50 mg PO BID Pain 02/04/19 06/02/24 History empagliflozin 25 mg tablet 25 mg PO DAILY Diabetes 02/21/22 06/02/24 History (Jardiance) latanoprost 0.005 % eye drops 1 drp Eye-Both HS 10/02/22 06/02/24 History amlodipine 10 mg tablet 5 mg PO DAILY 06/26/23 06/02/24 History metoprolol tartrate 25 mg tablet 25 mg PO DAILY 06/26/23 06/02/24 History nitroglycerin 0.4 mg sublingual 0.4 mg buccal NEEDED PRN . 06/26/23 06/02/24 History tablet insulin glargine 100 unit/mL (3 50 unit SQ HS 05/29/24 06/02/24 History mL) subcutaneous pen (Lantus Solostar U-100 Insulin) New Prescriptions to Start Prescriptions: Allergies Allergy/AdvReac Type Severity Reaction Status Date / Time No Known Allergies Allergy Verified 06/02/24 06:26 Exam Data for Last 24 hours Vital signs and Labs for Last 24 Hours: Temp Pulse Resp BP Pulse Ox O2 Del Method 97.3 F L 81 18 127/57 L 96 Room Air 06/02/24 06:31 06/02/24 06:31 06/02/24 06:31 06/02/24 06:31 06/02/24 06:31 06/02/24 06:31 Constitutional Constitutional: no acute distress *Routine HEENT Exam Head: Present normocephalic Eye: Present EOMI ENT: Present mucous membranes moist *Routine Respiratory Exam Respiratory: Absent respiratory distress *Routine Cardiovascular Exam Cardiovascular: Absent tachycardia *Routine Abdominal Exam Abdominal: Present soft *Routine Rectal Exam Rectal:: deferred *Routine Genitalia Exam Genitalia:: deferred Assessment and Plan *Assessment and plan (1) History of colon polyps: Status: Acute Category: Medical Code(s): Z86.0100 - Personal history of colon polyps, unspecified Plan: Colonoscopy today I have discussed the risks and benefits including, but not limited to: Bleeding Infection Damage to surrounding tissue Inherent risks of sedation The patient agrees to proceed.
[2024-06-02 07:22] VITALS: O2SAT 96
[2024-06-02 08:01] VITALS: BP 85/49; PULSE 78; RESP 17; TEMP 36.1; O2SAT 93
[2024-06-02 08:11] VITALS: BP 87/50; PULSE 70; RESP 17; O2SAT 95
--- NOTE | 2024-06-02 08:11 | EXP.ANES.CKL ---
[facility] Disclaimer: The information contained in this section may have been updated after the patient was seen, as this information can be updated by other users. Medical History Osteoarthritis Hyperlipidemia Hypertension Diabetes mellitus, type 2 Surgical History History of laparoscopic cholecystectomy History of rectal polypectomy surgical removal too large for procedure rm History of colonoscopy Family History Other Family history of cancer Family history of diabetes mellitus type II Family history of myocardial infarction Social History Smoking Status: Never smoker second hand exposure: No alcohol intake: current alcohol intake frequency: holidays/special occasions only substance use type: denies use current occupational status: retired Travel in the last 8 weeks: None household members: none housing: house lives independently: Yes marital status: single education level: high school service: No current occupation: self-employed current occupational exposures/hazards: No caffeine: Yes special steven needs: No agree to transfusion: No do you feel safe at home: Yes victim of physical abuse: No victim of emotional abuse: No victim of sexual abuse: No would you like helpful sources: No Have you lived/traveled outside US in past 30 days?: No Contact w/someone who lives/traveled outside US past 30 days?: No Exposure to someone with infectious disease in past 14 days?: No Do you have a fever (greater than 100.4 F or 38 C)?: No Have you tested positive for COVID-19: No Exposed to someone with COVID-19 in past 14 days?: No Do you have a sore throat?: No Do you have a cough?: No Do you have any weakness?: No Are you experiencing any nausea/vomitting?: No Do you have any diarrhea?: No Are you experiencing any unusual bleeding?: No Do you have any muscle aches/pain?: No Do you have any abdominal pain?: No Are you experiencing loss of taste or smell?: No [facility] Anesthesia Checklist Patient Identification Patient Identification: Verbal (Name & ) Structural Data Admitted From: Home Planned Operative Procedure/s: colonoscopy Consent for Planned Operative Procedure(s) Verified: Yes NPO Status Verified Time NPO: 00:00 Additional verifications Anesthesia Reactions: No Hx Blood Transfusions: No Blood Transfusion Reaction: No Airway Assessment Mallampati Score:: Class II C-Spine Mobility Assessed: Yes TMJ Mobility Assessed: Yes Dentition: Poor Dentition Neurological Assessment Level of Consciousness: Awake, Alert and Appropriate Anesthesia Plan Anesthesia Risk discussed: Yes Anesthesia Plan: Verified ASA Class: II Anesthesia Type: MAC
[2024-06-02 08:21] VITALS: BP 99/44; PULSE 76; RESP 17; O2SAT 96
[2024-06-02 08:31] VITALS: BP 103/55; PULSE 69; RESP 17; O2SAT 96
--- NOTE | 2024-06-02 09:20 | SUR.PHASEII ---
During pt's stay, multiple attempts made to make follow up appointment with Dr Espinal, with no answer. [id number]- [place] from [facility] in [place]'s office. Got appointment time and spoke to [place] pt's DIL.. She verbalized understanding of date and time
[2024-06-03 06:39] LABS: POC Glucose,Bedside 104 (70-110)
== END 2024-06-02 08:31 | disposition home or self-care (01) ==
PROVIDERS: PCP Nurse Practitioner Family; Visit Provider Surgery
PROC: 0DJD8ZZ Inspection of Lower Intestinal Tract, Via Natural or Artificial Opening Endoscopic (ICD-10-PCS; CPT 45378; principal; 2024-06-02 07:30)
DX: Z86.0100 Personal history of colon polyps, unspecified (principal); Z09 Encounter for follow-up examination after completed treatment for conditions other than malignant neoplasm
CPT/HCPCS: 45378; 82962; J7120